=== PATIENT | female | born 1980 | race African-American/Black ===

== ENCOUNTER 2025-08-01 14:35 | Emergency (ER) | payer BC ==
[~2025-08-01] VITALS: Ht 160 cm; Wt 56.2 kg
[2025-08-01 14:44] VITALS: BP 118/83; TEMP 98.1; O2SAT 99
[2025-08-01 15:43] LABS: PLATELET COUNT (AUTO) 352 K/uL (150-450); RED BLOOD CELL COUNT(AUTO) 4.49 MIL/uL (4.0-5.2); RED CELL DISTRIBUTION WIDTH 13.1 % (11.5-15.0); WHITE BLOOD COUNT (AUTO) 5.7 K/uL (4.3-11.0)
[2025-08-01 16:35] LABS: PREGNANCY TEST URINE QUAL NEGATIVE (NEGATIVE)
== END 2025-08-01 16:39 | disposition home or self-care (01) ==
LOC: ER 14:38
DX: D50.9 Iron deficiency anemia, unspecified (principal); R53.83 Other fatigue; J45.909 Unspecified asthma, uncomplicated; Z91.018 Allergy to other foods; Z90.710 Acquired absence of both cervix and uterus
CPT/HCPCS: 36415; 84703-TC; 85025-TC; 86850-TC